=== PATIENT | female | born 2000 | race Two or more races ===

== ENCOUNTER 2024-08-06 07:10 | Emergency (ER) | payer MEDICAID, SELFPAY ==
[2024-08-06 07:21] VITALS: BP 121/78; PULSE 112; RESP 18; TEMP 37.7; O2SAT 98; BMI 32.5
--- NOTE | 2024-08-06 07:27 | XR_ITS ---
Examination: AP chest single view TECHNIQUE: AP portable upright chest single view Exam date and time: August 06, 2024 0745 hours Comparison April 18, 2022 INDICATIONS: Shortness of breath headache abdominal pain body chills today FINDINGS: Normal heart size Lungs are clear. The osseous structures are intact IMPRESSION: No active disease
--- NOTE | 2024-08-06 07:27 | XR_ITS ---
Examination: Complete OB ultrasound greater than 14 weeks Date and time of exam: August 06, 2024 0934 hours INDICATIONS: Positive test one day ago, pelvic pain onset today Findings: Viable intrauterine single fetus with single amniotic sac presentation cephalic Cardiac motion 164 BPM Placenta posterior 0.3 cm from the cervix grade 1 Umbilical cord insertion 3 vessel seen Cervix 3.1 cm Right ovary 2.9 x 2.1 cm arterial flow Left ovary 3.1 x 2.6 cm arterial flow. Composite estimated gestational age based on BPD, head circumference, abdominal circumference, femur length is 14 weeks 3 days Estimated weight 95 g. Survey of intracranial anatomy, spinal anatomy, abdominal anatomy, four-chamber heart performed with no abnormalities identified. Impression: Viable intrauterine gestation cephalic presentation Placenta low lying 0.3 cm from the cervix, recommend four-week follow-up ultrasound.
--- NOTE | 2024-08-06 07:43 | EDNOTE_ITS ---
Upper Respiratory Inf. RME/HPI General Chief Complaint: Flu Like Symptoms Stated Complaint: STEPHENS, ABD PAIN, COUGH, SOB, BODYACHES, CHILLS Time Seen by Provider: 08/06/24 07:14 Arrival date/time: 08/06/24 07:10 23-year-old female with no significant medical problems presents emergency department today with multiple complaints including headache, body aches, chills, cough and congestion and pelvic pain. Patient reports that she is not sure how far along she is. Limitations: no limitations Related Data Previous Rx's ?Medication ?Instructions ?Recorded acetaminophen 500 mg capsule 1,000 mg (2 x 500 mg) PO Q8HR PRN 08/06/24 pain #30 caps metoclopramide HCl 10 mg tablet 10 mg PO Q6H PRN nausea and 08/06/24 (Reglan) vomiting #30 tabs Allergies Allergy/AdvReac Type Severity Reaction Status Date / Time No Known Allergies Allergy Verified 03/30/23 04:55 Review of Systems Review of Systems Systems Reviewed: All systems reviewed, normal except as documented Constitutional Constitutional: Reports system reviewed and no additional complaints, except as documented, Denies fever(s) and Denies headache(s) Eyes Eyes: Reports system reviewed and no additional complaints, except as documented and Denies blurry vision ENT Ears, Nose, Mouth, and Throat: Reports system reviewed and no additional complaints, except as documented, Denies headache(s), Denies nasal congestion and Denies nasal discharge Cardiovascular Cardiovascular: Reports system reviewed and no additional complaints, except as documented, Denies chest pain and Denies dyspnea Respiratory Respiratory: Reports system reviewed and no additional complaints, except as documented, Reports chest congestion, Reports cough and Denies dyspnea Gastrointestinal Gastrointestinal: Reports system reviewed and no additional complaints, except as documented, Reports abdominal pain, Reports nausea and Reports vomiting Integumentary/Breasts Skin/Breast: Reports system reviewed and no additional complaints, except as documented and Denies rash Neurologic Neurologic: Reports system reviewed and no additional complaints, except as documented, Reports as per HPI and Denies headache(s) Past Medical History Past Medical History NEUROLOGIC: Negative Neurological Disorders CARDIAC: Negative Cardiac Disorders ED Exam General Limitations: Present no limitations General appearance: Present alert and in no apparent distress Head Head exam: Present atraumatic Eye Eye exam: Present normal appearance, PERRL and EOMI; Absent conjunctival injection ENT ENT exam: Present normal exam, normal oropharynx and mucous membranes moist Neck Neck exam: Present normal inspection, full ROM and trachea midline Chest Chest inspection: Present normal inspection and symmetric chest wall rise Respiratory Respiratory exam: Present normal lung sounds bilaterally; Absent respiratory distress, wheezes, stridor, accessory muscle use or prolonged expiratory phase Cardiovascular Cardiovascular exam: Present regular rate, normal rhythm and normal heart sounds Abdominal Exam Abdominal exam: Present soft and normal bowel sounds; Absent distention, tenderness, guarding, rebound, rigidity, [place]ayoa's sign, Rovsing's sign or t enderness at [place]'s Point Abdominal tenderness: Absent RUQ or RLQ Extremities Exam Extremities exam: Present normal inspection and full ROM Back Exam Back exam: Present normal inspection and full ROM Neurological Exam Neurological exam: Present alert, oriented X3, CN II-XII intact, normal gait and reflexes normal; Absent motor sensory deficit Psychiatric Psychiatric exam: Present normal affect and normal mood Skin Skin exam: Present warm, dry, intact and normal color; Absent rash Course Quality Measures none Orders Category Date Time Status Bedside COVID-19 Antigen Test NOW Care 08/06/24 07:27 Completed Bedside Influenza A&B Antigen Test NOW Care 08/06/24 07:27 Completed US OB >= 14 weeks Fetus Stat Exams 08/06/24 07:27 Completed XR chest 1V portable Stat Exams 08/06/24 07:27 Completed Beta HCG,Quantitative Stat Lab 08/06/24 07:42 Completed CBC Stat Lab 08/06/24 07:42 Completed Comprehensive Metabolic Panel Stat Lab 08/06/24 07:42 Completed Lipase Stat Lab 08/06/24 07:42 Completed Urinalysis Stat Lab 08/06/24 07:41 Completed Urine Culture Stat Lab 08/06/24 07:41 Received Acetaminophen Tab [Tylenol ES Tab] Med 08/06/24 07:27 Discontinued 1,000 mg PO X1 ONE Metoclopramide Inj [Reglan Inj] Med 08/06/24 07:40 Discontinued 10 mg IVP X1 ONE Sodium Chloride 0.9% 1000 ml [Ns] 1,000 ml Med 08/06/24 07:40 Discontinued IV 999 mls/hr Vital Signs Vital signs: Vital Signs Temperature 99.8 F 08/06/24 07:21 Pulse Rate 112 H 08/06/24 07:21 Respiratory Rate 18 08/06/24 07:21 Blood Pressure 121/78 08/06/24 07:21 Pulse Oximetry (%) 98 08/06/24 07:21 Oxygen Delivery Method Room Air 08/06/24 07:21 O2 saturation 98% room air within normal limits Upper Respiratory Infection MDM Narrative MDM Narrative:: 23-year-old female with no significant medical problems presents emergency department today with multiple complaints including headache, body aches, chills, cough and congestion and pelvic pain. Patient reports that she is not sure how far along she is. Lab work x-ray and ultrasound obtained Chest x-ray: No acute infiltrates noted Ultrasound: Viable patient started have repeat ultrasound and lab work in 2 weeks Lab work: Patient tested positive for flu consistent with patient's symptoms Patient has no leukocytosis Patient discharged home in no distress to follow-up with primary care doctor in the next 24 to 48 hours and for any worsening symptoms to return to the ER immediately Patient data External records reviewed:: [facility] previous records Clinical information provided by:: patient Social determinants that could affect healthcare access:: none Patient has the following chronic illnesses:: None How is presenting disease/condition affected by chronic disease/condition?: no chronic disease Evaluation data The following diagnostics were reviewed and interpreted by me:: lab results and radiology exam(s) Lab and/or radiology exams considered but not ordered:: Labs and radiology obtained Interpretation Summary: Reviewed by me Medications / Prescriptions Medications or Prescriptions considered but not ordered:: Given Medication administrations:: Medication Administration History Discontinued Medications Acetaminophen (Acetaminophen 500 Mg Tablet) 1,000 mg PO X1 ONE Stop: 08/06/24 07:28 Last Admin: 08/06/24 08:39 Dose: 1,000 mg Documented By: Sodium Chloride (Ns) 1,000 mls @ 999 mls/hr IV .Q1H1M ONE Stop: 08/06/24 08:40 Last Infusion: 08/06/24 09:52 Dose: Infused Documented By: Admin: 08/06/24 08:38 Dose: 999 mls/hr Documented By: Metoclopramide HCl (Metoclopramide Inj 5 Mg/Ml Vial 2 Ml) 10 mg IVP X1 ONE; Protocol Stop: 08/06/24 07:41 Last Admin: 08/06/24 08:39 Dose: 10 mg Documented By: Given Consultations Consultation(s) initiated? (list below): No Diagnosis Upper Respiratory Differential Diagnosis: upper respiratory infection, otitis media, sinusitis, viral infection, bronchitis and influenza Most likely diagnosis given after review of the tests above:: URI Admission Indicated Admission indicated?: not indicated Admission Request Was there a request for admission?: No Disposition Plan Disposition Plan: Discharge Discharge Attestation Discharge Attestation: The patient and all family members were given an opportunity to ask questions and understood the discharge instructions. Discharge instructions specifically effects, indications for sooner follow up or return to the emergency department, and the expected course of current diagnosis. Patient condition: Stable Discharge Plan Plan Patient Disposition: HOME (Self Care) Disposition Comment: Stable Prescriptions/Referrals Prescriptions/Med Rec: New acetaminophen 500 mg capsule 1,000 mg PO Q8HR PRN (Reason: pain) Qty: 30 0RF metoclopramide HCl [Reglan] 10 mg tablet 10 mg PO Q6H PRN (Reason: nausea and vomiting) Qty: 30 0RF Referrals: En Moore MD [Primary Care Provider] - 08/07/24 Problem List Clinical Impression: Influenza, Nausea & vomiting, Patient/Caregiver Discharge Instructions Education Materials: ED Influenza (Adult) Additional Instructions: Please have repeat ultrasound in 2 weeks with your [employer] for worsening symptoms return immediately Print Language: French Stand Alone Forms: Faye Award Info., Work/School Release, Patient Portal Info Letter PA/OVEREDGE MACHINE OPERATOR Supervising Physician PA/OVEREDGE MACHINE OPERATOR Supervising Physician: Dr. Mariee
[2024-08-06 07:54] LABS: Collection Type, Urine Clean Catch
[2024-08-06 07:59] LABS: Bilirubin,Urine Negative (Negative); Blood,Urine Negative (Negative); Clarity,Urine Clear (Clear/Hazy); Color,Urine Lt-Yellow (Lt Yel-Yel); Glucose, Urine Negative (Negative); Ketones,Urine Trace (Negative); Leukocyte Esterase,Urine Positive (Negative); Nitrite,Urine Negative (Negative); Protein,Urine Negative (Neg - Trace); RBC,Urine 2 /hpf (0-3); Specific Gravity,Urine 1.017 (1.001-1.035); Squamous Epithelial Cell,Urine 9 /hpf (0-5); Urobilinogen,Urine Negative mg/dL (0.0-1.0); WBC,Urine 3 /hpf (0-5)
[2024-08-06 07:59] LABS: Basophils % (Auto) 1 % (0-2.5); Eosinophils # (Auto) 0.1 Thou/mm3 (0.0-0.5); Eosinophils % (Auto) 1 % (0-10); Hematocrit 35.1 % (36.0-46.0); Immature Granulocytes % (Auto) 1 % (0-0); Immature Granulocytes Auto 0.04 Thou/mm3 (0.00-0.00); Lymphocytes # (Auto) 0.3 Thou/mm3 (1.0-4.8); Lymphocytes % (Auto) 4 % (10-50); Mean Corpuscular Hemoglobin 29.1 pg (25.0-35.0); Mean Corpuscular Volume 79 fL (80-100); Monocytes # (Auto) 0.5 Thou/mm3 (0.0-0.8); Monocytes % (Auto) 5 % (0-12); Neutrophils # (Auto) 7.6 Thou/mm3 (1.8-7.7); Neutrophils % (Auto) 89 % (37-80); Nucleated Red Blood Cell % 0 /100 WBC (0); Platelet Count 230 Thou/mm3 (140-440); RDW Standard Deviation 35.2 fL (36.4-46.3); Red Blood Count 4.46 Miln/mm3 (4.00-5.20); White Blood Count 8.5 Thou/mm3 (3.6-11.0)
[2024-08-06 08:08] VITALS: BP 113/74; PULSE 114; RESP 19; TEMP 38.1; O2SAT 99
[2024-08-06 08:38] LABS: Alanine Aminotransferase 13 U/L (10-49); Albumin, Serum 4.3 gm/dL (3.5-5.0); Albumin/Globulin Ratio 1.5 (1.2-2.2); Alkaline Phosphatase 58 U/L (46-116); Anion Gap 7 (7-16); Aspartate Amino Transferase 20 U/L (0-34); BUN/Creatinine Ratio 12 Ratio (12-20); Bilirubin,Total 0.5 mg/dL (0.3-1.2); Blood Urea Nitrogen 6 mg/dL (9-23); Calcium 9.6 mg/dL (8.3-10.6); Calcium (Corrected) 9.6 mg/dL (8.5-10.1); Chloride 103 mMol/L (98-107); Creatinine (Component) 0.5 mg/dL (0.6-1.3); Globulin 2.8 gm/dL (2.3-3.5); Glucose 103 mg/dL (74-106); Lipase 34 U/L (12-53); Osmolality,Calculated 262 (275-295); Potassium 3.7 mMol/L (3.4-5.1); Sodium 132 mMol/L (136-145); Total Protein 7.1 gm/dL (5.7-8.2); eGFR > 60 See Note
[2024-08-06] MEDS: SODIUM CHLORIDE 0.9% 1000 ML 1,000 ML 999 ML IV (08:38)
[2024-08-06 08:39] VITALS: TEMP 38.1
[2024-08-06] MEDS: METOCLOPRAMIDE INJ 5 MG/ML VIAL 2 ML 10 MG IVP (08:39)
[2024-08-06] MEDS: ACETAMINOPHEN 500 MG TABLET 1000 MG PO (08:39)
[2024-08-06 09:03] LABS: Beta HCG,Quantitative 61688 mIU/mL (<5.0)
[2024-08-06 10:30] VITALS: BP 129/81; PULSE 89; RESP 18; TEMP 37.2
== END 2024-08-06 11:10 | disposition home or self-care (01) ==
PROVIDERS: Nurse Practitioner Primary Care; Emergency Provider Emergency Medicine; PCP Family Medicine
DX: O99.519 Diseases of the respiratory system complicating pregnancy, unspecified trimester (principal); J11.1 Influenza due to unidentified influenza virus with other respiratory manifestations
CPT/HCPCS: 36415; 71045; 76805; 80053; 81001; 83690; 84702; 85025; 87086; 87400; 87811; 96374; 99284; J2765; J7030; A9270

== ENCOUNTER 2024-11-13 20:03 | Observation (INO) | payer MEDICAID, SELFPAY ==
[2024-11-13 19:04] VITALS: BP 122/79; PULSE 112; RESP 18; TEMP 36.9; O2SAT 98; BMI 34.0
[2024-11-13 20:13] VITALS: BMI 33.8
[2024-11-13 20:14] VITALS: TEMP 36.6
[2024-11-13 20:19] VITALS: BP 122/62; PULSE 75; RESP 100; RESP 18; TEMP 36.6
== END 2024-11-13 20:44 | disposition home or self-care (01) ==
PROVIDERS: Admitting Provider Obstetrics & Gynecology; Visit Provider Obstetrics & Gynecology
DX: O26.893 Other specified pregnancy related conditions, third trimester (principal); Z3A.28 28 weeks gestation of pregnancy; R10.2 Pelvic and perineal pain
CPT/HCPCS: 59899

== ENCOUNTER 2024-12-23 14:12 | Outpatient (AMB) | payer MEDICAID, SELFPAY ==
[2024-12-23 14:37] VITALS: BP 102/87; PULSE 80; RESP 16; TEMP 36.3; O2SAT 98; BMI 36.1
--- NOTE | 2024-12-23 14:37 | AMB.OBVISIT ---
Vital Signs 12/23/24 14:37 Height 1.55 m Height Method Stated Weight 86.806 kg Weight Measurement Method Standing Scale BMI 36.1 BP 102/87 H Blood Pressure Source Automatic Cuff Blood Pressure Location Left Upper Arm Position Sitting Respiration 16 Pulse 80 Pulse Source Monitor Temp 97.3 F Temp Source Oral Pulse Oximetry (%) 98 Oxygen Delivery Method Room Air Allergies/Home Meds Allergies & Medications Allergies No Known Allergies Allergy (Verified 12/23/24 14:38) Medication Reconciliation vits no.130-ferrous fum 27 mg iron-folic acid 800 mcg tablet ( Vitamin) tab 11/13/24 [History Confirmed 12/23/24] Intake Visit Data Collection New Patient or Established: Established Patient (seen at [facility] within 3 years) Reason for Visit:: Seen by Clinical Staff ONLY (RN/MA): No Gaming Floor Supervisor Required: No Do You Feel Safe at Home: Yes Authorities Contacted: N/A PCP or OBGYN visit in last 3 months: Yes Hx Now: Yes Are you currently on any form of Control: No Pain Present Currently: No Pain Scale Used: Murray-Villar/Numerical Pain scale:: 0 Smoking Status Smoking Status: Never smoker Questionnaires Covid-19 Vaccine Questionnaire Has patient been vacinated for Covid-19 Have you been vacinated for Covid-19: Yes PHQ-9 PHQ-2 Over the last 2 weeks, how often have you been bothered by any of the following problems? 1. Little interest or pleasure in doing things: not at all 2. Feeling down, depressed, or hopeless: not at all Total score: 0 PHQ-9 3. Trouble falling or staying asleep, or sleeping too much: Not at all 4. Feeling tired or having little energy: Not at all 5. Poor appetite or overeating: Not at all 6. Feeling bad about yourself - or that you are a failure or have let yourself or your family down: Not at all 7. Trouble concentrating on things, such as reading the newspaper or watching television: Not at all 8. Moving or speaking so slowly that other people could have noticed? - Or the opposite - being so fidgety or restless that you have been moving around a lot more than usual: not at all 9. Thoughts that you would be better off or of hurting yourself in some way: Not at all Total score: 0 If you checked off any problems, how difficult have these problems made it for you to do your work, take care of things at home, or get along with other people?: not difficult at all Source: Developed by Drs. Red Mayes, Janine Dong, Jose Lerma and colleagues, with an educational atiya from [employer]. Depression screen completed yes Social History Living Situation History Lives With: Family Housing: House Tobacco History Smoking Status: Never smoker Second Hand Smoke Exposure: No Alcohol History Alcohol Intake: Never Domestic Abuse History Do You Feel Safe at Home: Yes Past Medical History Past Medical History Have you ever been diagnosed with any of the following: Cardiology Problems Congestive Heart Failure: No Respiratory Problems Chronic Obstructive Pulmonary Disease (COPD): No Asthma: No Stomache/Intestinal Problems Hepatitis: No Colorectal Cancer: No Genital/Urinary Problems Renal Disease: No Reproductive Problems Breast Cancer: No Previous Pregnancies: Yes Musculoskeletal Problems Bone Cancer: No Arthritis: Yes Endocrine Problems Diabetes Mellitus Type 1: No Diabetes Mellitus Type 2: No Blood Problems Anemia: Yes Psychologic Problems Recreational Drug Use: Yes (THC/COCAINE) Depression: No Anxiety: No Other Problems Hospitalization: No Down Syndrome: No Developmental Delay: No Shingles: No Falls: No Blood Transfusions: No Blood Transfusion Reaction: No Anesthesia Reactions: No Organ Transplant: No Chemotherapy: No Radiation Therapy: No Hyperbaric Therapy: No MRSA: No VRSA: No Vancomycin-Resistant Enterococci: No Human Immunodeficiency Virus (HIV): No Chicken Pox: No Measles: No Mumps: No Rubella (Al[place]ian Measles): No Pertussis: No Clostridium Difficile: No Cancer: No Cervical Cancer: No Lung Cancer: No Ovarian Cancer: No History of Present Illness HPI Narrative 24-year-old 3 para 2 for OB check and transfer of care from [facility] to [facility]. Patient has been followed at [facility] since she was 12 weeks . She has no records today but a medical release of records was done. But she has notable last.. But by 12-week ultrasound she is due February 03, 2025. Patient denies social habits. Denies surgery. Denies chronic illness. She is taking her vitamins and iron. This has been uneventful. She has an OB ultrasound with maternal- medicine coming up January 09. She complains of pelvic pressure. Patient has also had increased swelling of her feet and cannot wear shoes suitable for work so her employer asked her not to come in. Patient denies labor complaints reports good movement Review of Systems Review of Systems Systems Reviewed: All systems reviewed, normal except as documented Visit CHILO Calculator Estimated Delivery Date Method Current WG Current Estimate 02/05/25 LMP (Uncertain) 33w 5d Expected Delivery Route/Plan vaginal Specific Issue/Plans increased sweling both legs, increased weight gain Initial Weight: Not Recorded Date <del>?</del> EGA Weight Edema CTX Effacement BP Fundal ht Pres Dilation Effacement Station Visit Note Alb Glu FHR Mov 12/23/24 <del>?</del> 33w 5d 86.806 kg 1+ absent 102/87 34 cephalic This is a 24-year-old 3 para 2 at 34 weeks by a 12-week ultrasound. Patient reports good movement. Reports pressure. Reports swelling is improved since her last day of work. Patient received Tdap at her last OB visit. And patient has a follow-up maternal- medicine appointment January 09. Medical release of records today. Patient was given a disability note for today and she will return in 6 weeks sore around March 21. Advised to avoid salt. I discussed weight gain and limiting her carbohydrates. More fiber more protein. Discussed labor precautions. Discussed kick count twice daily. Return in 2 weeks for group B strep 133 active Exam General Limitations: no limitations General Appearance: alert, in no apparent distress, comfortable, cooperative, healthy appearing, well developed and well groomed Chest Chest inspection: Present normal inspection and symmetric chest wall rise Resp Respiratory exam: Present normal lung sounds bilaterally Card Cardiovascular exam: Present regular rate, normal rhythm and normal heart sounds Abdominal Abdominal exam: Present soft (gravid abdomen, FH:33, fht:133) and normal bowel sounds Psych Psychiatric exam: Present normal affect and normal mood Assessment & Plan Diagnosis / Problem List (1) Normal in multigravida in third trimester: Status: Acute Plan Release of records filled out. Patient to start disability. Note for work given. Continue vitamins and iron twice a day reviewed high iron foods. Avoid salt. Comfort measures for retained fluids. Elevate the legs. Increase activity to 40 minutes a day. And I discussed diet and weight with patient. GBS next visit Return in 2 weeks for OB check Additional Plan Follow Up: 2 Weeks (rtc ob check) Office Procedures OB Clinic LOC & Office Proc's Nursing/Assessment Patient Status: Established Patient OB Clinic Nursing Assessment: BP Monitoring, Medication Reconciliation, Update PMH in EMR and Vital Signs OB Clinic Coordination of Care: Consent,records obtained, informed consent, Education Simp Pt/Fam, Lab and Imaging orders and Staff clarify orders Special Needs: Heart tones Established Patient Charge Established Patient Point Assignment: 120 Established Patient Point Charge: EP Level 4 (120-155)
== END 2024-12-23 15:03 | disposition home or self-care (01) ==
LOC: HODSOBC 14:12
PROVIDERS: Supervising Provider Obstetrics & Gynecology; Visit Provider Advanced Practice Midwife
DX: Z34.83 Encounter for supervision of other normal pregnancy, third trimester (principal); Z3A.33 33 weeks gestation of pregnancy
CPT/HCPCS: 99214; G0463

== ENCOUNTER 2025-01-07 13:32 | Outpatient (AMB) | payer MEDICAID, SELFPAY ==
[2025-01-07 13:59] VITALS: BP 136/76; PULSE 106; RESP 18; TEMP 36.8; O2SAT 99; BMI 25.3
--- NOTE | 2025-01-07 13:59 | OBCLNT_ITS ---
Vital Signs 01/07/25 13:59 Height 1.55 m Height Method Stated Weight 60.951 kg Weight Measurement Method Standing Scale BMI 25.3 BP 136/76 H Blood Pressure Source Automatic Cuff Blood Pressure Location Left Upper Arm Position Sitting Respiration 18 Pulse 106 H Pulse Source Monitor Temp 98.2 F Temp Source Oral Pulse Oximetry (%) 99 Oxygen Delivery Method Room Air Allergies/Home Meds Allergies & Medications Allergies No Known Allergies Allergy (Verified 01/07/25 14:00) Medication Reconciliation vits no.130-ferrous fum 27 mg iron-folic acid 800 mcg tablet ( Vitamin) tab 11/13/24 [History Confirmed 01/07/25] Intake Visit Data Collection New Patient or Established: Established Patient (seen at [facility] within 3 years) Reason for Visit:: OBC Seen by Clinical Staff ONLY (RN/MA): No Usability Architect Required: No Do You Feel Safe at Home: Yes Authorities Contacted: N/A PCP or OBGYN visit in last 3 months: Yes Date of Last PCP or OBGYN visit: 12/23/24 Hx Now: Yes Are you currently on any form of Control: No Pain Present Currently: No Pain Scale Used: Murray-Villar/Numerical Pain scale:: 0 Smoking Status Smoking Status: Never smoker Questionnaires Covid-19 Vaccine Questionnaire Has patient been vacinated for Covid-19 Have you been vacinated for Covid-19: Yes PHQ-9 PHQ-2 Over the last 2 weeks, how often have you been bothered by any of the following problems? 1. Little interest or pleasure in doing things: not at all 2. Feeling down, depressed, or hopeless: not at all Total score: 0 PHQ-9 3. Trouble falling or staying asleep, or sleeping too much: Not at all 4. Feeling tired or having little energy: Not at all 5. Poor appetite or overeating: Not at all 6. Feeling bad about yourself - or that you are a failure or have let yourself or your family down: Not at all 7. Trouble concentrating on things, such as reading the newspaper or watching television: Not at all 8. Moving or speaking so slowly that other people could have noticed? - Or the opposite - being so fidgety or restless that you have been moving around a lot more than usual: not at all 9. Thoughts that you would be better off or of hurting yourself in some way: Not at all Total score: 0 If you checked off any problems, how difficult have these problems made it for you to do your work, take care of things at home, or get along with other people?: not difficult at all Source: Developed by Drs. Red Mayes, Janine Dong, Jose Lerma and colleagues, with an educational atiya from [employer]. Depression screen completed yes Social History Living Situation History Marital Status: Lives With: Family Housing: House Tobacco History Smoking Status: Never smoker Second Hand Smoke Exposure: No Alcohol History Alcohol Intake: Never Domestic Abuse History Do You Feel Safe at Home: Yes Past Medical History Past Medical History Have you ever been diagnosed with any of the following: Cardiology Problems Congestive Heart Failure: No Respiratory Problems Chronic Obstructive Pulmonary Disease (COPD): No Asthma: No Stomache/Intestinal Problems Hepatitis: No Colorectal Cancer: No Genital/Urinary Problems Renal Disease: No Reproductive Problems Breast Cancer: No Previous Pregnancies: Yes Musculoskeletal Problems Bone Cancer: No Arthritis: Yes Endocrine Problems Diabetes Mellitus Type 1: No Diabetes Mellitus Type 2: No Blood Problems Anemia: Yes Psychologic Problems Recreational Drug Use: Yes (THC/COCAINE) Depression: No Anxiety: No Other Problems Hospitalization: No Down Syndrome: No Developmental Delay: No Shingles: No Falls: No Blood Transfusions: No Blood Transfusion Reaction: No Anesthesia Reactions: No Organ Transplant: No Chemotherapy: No Radiation Therapy: No Hyperbaric Therapy: No MRSA: No VRSA: No Vancomycin-Resistant Enterococci: No Human Immunodeficiency Virus (HIV): No Chicken Pox: No Measles: No Mumps: No Rubella (Micronesian Measles): No Pertussis: No Clostridium Difficile: No Cancer: No Cervical Cancer: No Lung Cancer: No Ovarian Cancer: No Visit OB Visit Log OB Flowsheet Initial Weight: Not Recorded Date -?-?-?-?-?-?-?-?-?-?-?-?- EGA Weight Edema CTX Effacement BP Fundal ht Pres Dilation Effacement Station Visit Note Alb Glu FHR Mov 12/23/24 -?-?-?-?-?-?-?-?-?-?-?-?- 33w 5d 86.806 kg 1+ absent 102/87 34 cephalic This is a 24-year-old 3 para 2 at 34 weeks by a 12-week ultrasound. Patient reports good movement. Reports pressure. Reports swelling is improved since her last day of work. Patient received Tdap at her last OB visit. And patient has a follow-up maternal- medicine appointment January 09. Medical release of records today. Patient was given a disability note for today and she will return in 6 weeks sore around March 21. Advised to avoid salt. I discussed weight gain and limiting her carbohydrates. More fiber more protein. Discussed labor precautions. Discussed kick count twice daily. Return in 2 weeks for group B strep 133 active 01/07/25 -?-?-?-?-?-?-?-?-?-?-?-?- 35w 6d 60.951 kg absent absent 136/76 cephalic GBS today. Discussed kick count labor precautions with patient. Complains of pressure. Denies leaking or bleeding. Fetus is active and palpated while listening to heart rate. Patient reports that she has records but did not bring them. Return in 1 week OB check 135 active CHILO Calculator Estimated Delivery Date Method Current WG Current Estimate 02/05/25 LMP (Uncertain) 35w 6d Expected Delivery Route/Plan vaginal Specific Issue/Plans increased sweling both legs, increased weight gain Assessment & Plan Diagnosis / Problem List (1) Normal in multigravida in third trimester: Status: Acute Plan GBS today. Discussed labor precautions. Discussed kick count with patient, perform kick count twice daily. Continue vitamins. Increase fluids. Walk 40 minutes a day. Advised patient to peanut picker records from [facility]. Additional Plan Follow Up: 1 Week (obc) Office Procedures OB Clinic LOC & Office Proc's Nursing/Assessment Patient Status: Established Patient OB Clinic Nursing Assessment: BP Monitoring, Medication Reconciliation, Update PMH in EMR and Vital Signs OB Clinic Coordination of Care: Consent,records obtained, informed consent, Lab and Imaging orders and Staff clarify orders Special Needs: Heart tones Established Patient Charge Established Patient Point Assignment: 105 Established Patient Point Charge: EP Level 3 (80-115)
== END 2025-01-07 14:16 | disposition home or self-care (01) ==
LOC: HODSOBC 13:32
PROVIDERS: Supervising Provider Advanced Practice Midwife; Visit Provider Advanced Practice Midwife
DX: Z34.83 Encounter for supervision of other normal pregnancy, third trimester (principal); Z3A.35 35 weeks gestation of pregnancy
CPT/HCPCS: 99213; G0463

== ENCOUNTER 2025-01-10 23:52 | Observation (INO) | payer MEDICAID, SELFPAY ==
[2025-01-10 23:58] VITALS: BP 125/67; PULSE 89; RESP 100; RESP 16; TEMP 36.8
[2025-01-11] VITALS (9 sets, daily range): BP systolic 131; BP diastolic 77; PULSE 82–97; TEMP 36.8; O2SAT 99–100; BMI 36.9
== END 2025-01-11 00:46 | disposition home or self-care (01) ==
PROVIDERS: Admitting Provider Obstetrics & Gynecology; Visit Provider Obstetrics & Gynecology
DX: O36.8130 Decreased fetal movements, third trimester, not applicable or unspecified (principal); O26.893 Other specified pregnancy related conditions, third trimester; R10.2 Pelvic and perineal pain; Z3A.36 36 weeks gestation of pregnancy
CPT/HCPCS: 59025; 59899; G0378

== ENCOUNTER 2025-01-14 14:37 | Outpatient (AMB) | payer MEDICAID, SELFPAY ==
--- NOTE | 2025-01-14 14:50 | OBCLNT_ITS ---
Vital Signs 01/14/25 14:52 Height 1.55 m Height Method Stated Weight 87.543 kg Weight Measurement Method Standing Scale BMI 36.4 BP 126/81 Blood Pressure Source Automatic Cuff Blood Pressure Location Left Upper Arm Position Sitting Respiration 18 Pulse 112 H Pulse Source Monitor Temp 97.2 F Temp Source Oral Pulse Oximetry (%) 98 Oxygen Delivery Method Room Air Allergies/Home Meds Allergies & Medications Allergies No Known Allergies Allergy (Verified 01/14/25 14:53) Medication Reconciliation vits no.130-ferrous fum 27 mg iron-folic acid 800 mcg tablet ( Vitamin) tab 11/13/24 [History Confirmed 01/14/25] Intake Visit Data Collection New Patient or Established: Established Patient (seen at [facility] within 3 years) Reason for Visit:: OBC Consent obtained for Telemed Visit: No Seen by Clinical Staff ONLY (RN/MA): No Tap Builder Required: No Do You Feel Safe at Home: Yes Authorities Contacted: N/A PCP or OBGYN visit in last 3 months: Yes Date of Last PCP or OBGYN visit: 01/11/25 Hx Now: Yes Are you currently on any form of Control: No Pain Present Currently: No Pain Scale Used: Murray-Villar/Numerical Pain scale:: 0 Smoking Status Smoking Status: Never smoker Questionnaires Covid-19 Vaccine Questionnaire Has patient been vacinated for Covid-19 Have you been vacinated for Covid-19: Yes PHQ-9 PHQ-2 Over the last 2 weeks, how often have you been bothered by any of the following problems? 1. Little interest or pleasure in doing things: not at all 2. Feeling down, depressed, or hopeless: not at all Total score: 0 PHQ-9 3. Trouble falling or staying asleep, or sleeping too much: Not at all 4. Feeling tired or having little energy: Not at all 5. Poor appetite or overeating: Not at all 6. Feeling bad about yourself - or that you are a failure or have let yourself or your family down: Not at all 7. Trouble concentrating on things, such as reading the newspaper or watching television: Not at all 8. Moving or speaking so slowly that other people could have noticed? - Or the opposite - being so fidgety or restless that you have been moving around a lot more than usual: not at all 9. Thoughts that you would be better off or of hurting yourself in some way: Not at all Total score: 0 If you checked off any problems, how difficult have these problems made it for you to do your work, take care of things at home, or get along with other people?: not difficult at all Source: Developed by Drs. Red Mayes, Janine oDng, Jose Lerma and colleagues, with an educational atiya from [employer]. Depression screen completed yes Social History Living Situation History Lives With: Family Housing: House Tobacco History Smoking Status: Never smoker Second Hand Smoke Exposure: No Alcohol History Alcohol Intake: Never Domestic Abuse History Do You Feel Safe at Home: Yes Past Medical History Past Medical History Have you ever been diagnosed with any of the following: Cardiology Problems Congestive Heart Failure: No Respiratory Problems Chronic Obstructive Pulmonary Disease (COPD): No Asthma: No Stomache/Intestinal Problems Hepatitis: No Colorectal Cancer: No Genital/Urinary Problems Renal Disease: No Reproductive Problems Breast Cancer: No Previous Pregnancies: Yes Musculoskeletal Problems Bone Cancer: No Arthritis: Yes Endocrine Problems Diabetes Mellitus Type 1: No Diabetes Mellitus Type 2: No Blood Problems Anemia: Yes Psychologic Problems Recreational Drug Use: Yes (THC/COCAINE) Depression: No Anxiety: No Other Problems Hospitalization: No Down Syndrome: No Developmental Delay: No Shingles: No Falls: No Blood Transfusions: No Blood Transfusion Reaction: No Anesthesia Reactions: No Organ Transplant: No Chemotherapy: No Radiation Therapy: No Hyperbaric Therapy: No MRSA: No VRSA: No Vancomycin-Resistant Enterococci: No Human Immunodeficiency Virus (HIV): No Chicken Pox: No Measles: No Mumps: No Rubella (Vietnamese Measles): No Pertussis: No Clostridium Difficile: No Cancer: No Cervical Cancer: No Lung Cancer: No Ovarian Cancer: No Visit OB Visit Log OB Flowsheet Initial Weight: Not Recorded Date -?-?-?-?-?-?-?-?-?-?-?-?- EGA Weight Edema CTX Effacement BP Fundal ht Pres Dilation Effacement Station Visit Note Alb Glu FHR Mov 12/23/24 -?-?-?-?-?-?-?-?-?-?-?-?- 33w 5d 86.806 kg 1+ absent 102/87 34 cephalic This is a 24-year-old 3 para 2 at 34 weeks by a 12-week ultrasound. Patient reports good movement. Reports pressure. Reports swelling is improved since her last day of work. Patient received Tdap at her last OB visit. And patient has a follow-up maternal- medicine appointment January 09. Medical release of records today. Patient was given a disability note for today and she will return in 6 weeks sore around March 21. Advised to avoid salt. I discussed weight gain and limiting her carbohydrates. More fiber more protein. Discussed labor precautions. Discussed kick count twice daily. Return in 2 weeks for group B strep 133 active 01/07/25 -?-?-?-?-?-?-?-?-?-?-?-?- 35w 6d 60.951 kg absent absent 136/76 cephalic GBS today. Discussed kick count labor precautions with patient. Complains of pressure. Denies leaking or bleeding. Fetus is active and palpated while listening to heart rate. Patient reports that she has records but did not bring them. Return in 1 week OB check 135 active 01/14/25 -?-?-?-?-?-?-?-?-?-?-?-?- 36w 6d 87.543 kg absent absent 126/81 37 cephalic GBS-, discuss weight and diet, labor precaution, fkc bid, fetus growing 90%, schedule at 39 week, biggest baby 8lb, + 30lb weight, discuss labor precsution. called for sono from [facility] 135 active CHILO Calculator Estimated Delivery Date Method Current Current Estimate 02/05/25 LMP (Uncertain) 36w 6d Expected Delivery Route/Plan vaginal Specific Issue/Plans increased sweling both legs, increased weight gain Assessment & Plan Diagnosis / Problem List (1) Normal in multigravida in third trimester: Status: Acute Plan Discussed labor precautions. kick counts twice daily. Discussed signs symptoms of labor. ER precautions given. Continue vitamin the fluid. Called for sono results from [facility]. Return in a week OB check Additional Plan Follow Up: 1 Week (OBC) Office Procedures OB Clinic LOC & Office Proc's Nursing/Assessment Patient Status: Established Patient OB Clinic Nursing Assessment: BP Monitoring, Medication Reconciliation, Update PMH in EMR and Vital Signs OB Clinic Coordination of Care: Consent,records obtained, informed consent, Res ults/Orders obtained and Staff clarify orders Special Needs: Heart tones Established Patient Charge Established Patient Point Assignment: 95 Established Patient Point Charge: EP Level 3 (80-115)
[2025-01-14 14:52] VITALS: BP 126/81; PULSE 112; RESP 18; TEMP 36.2; O2SAT 98; BMI 36.4
== END 2025-01-14 15:29 | disposition home or self-care (01) ==
LOC: HODSOBC 14:37
PROVIDERS: PCP Advanced Practice Midwife; Referring Provider Advanced Practice Midwife; Supervising Provider Advanced Practice Midwife; Visit Provider Advanced Practice Midwife
DX: Z34.83 Encounter for supervision of other normal pregnancy, third trimester (principal); Z3A.36 36 weeks gestation of pregnancy
CPT/HCPCS: 99213; G0463

== ENCOUNTER 2025-01-21 13:02 | Outpatient (AMB) | payer MEDICAID, SELFPAY ==
--- NOTE | 2025-01-21 13:08 | OBCLNT_ITS ---
Vital Signs 01/21/25 13:14 Height 1.55 m Height Method Stated Weight 86.636 kg Weight Measurement Method Standing Scale BMI 36.0 BP 130/79 Blood Pressure Source Automatic Cuff Blood Pressure Location Right Upper Arm Position Sitting Respiration 18 Pulse 90 Pulse Source Monitor Temp 97.0 F Temp Source Oral Pulse Oximetry (%) 98 Oxygen Delivery Method Room Air Allergies/Home Meds Allergies & Medications Allergies No Known Allergies Allergy (Verified 01/21/25 13:15) Medication Reconciliation vits no.130-ferrous fum 27 mg iron-folic acid 800 mcg tablet ( Vitamin) tab 11/13/24 [History Confirmed 01/21/25] Intake Visit Data Collection New Patient or Established: Established Patient (seen at [facility] within 3 years) Reason for Visit:: CARE Seen by Clinical Staff ONLY (RN/MA): No Draw Press Operator Required: No Do You Feel Safe at Home: Yes Authorities Contacted: N/A PCP or OBGYN visit in last 3 months: Yes Hx Now: Yes Are you currently on any form of Control: No Pain Present Currently: No Pain Scale Used: Murray-Villar/Numerical Pain scale:: 0 Smoking Status Smoking Status: Never smoker Questionnaires Covid-19 Vaccine Questionnaire Has patient been vacinated for Covid-19 Have you been vacinated for Covid-19: No PHQ-9 PHQ-2 Over the last 2 weeks, how often have you been bothered by any of the following problems? 1. Little interest or pleasure in doing things: not at all 2. Feeling down, depressed, or hopeless: not at all Total score: 0 PHQ-9 3. Trouble falling or staying asleep, or sleeping too much: Not at all 4. Feeling tired or having little energy: Not at all 5. Poor appetite or overeating: Not at all 6. Feeling bad about yourself - or that you are a failure or have let yourself or your family down: Not at all 7. Trouble concentrating on things, such as reading the newspaper or watching television: Not at all 8. Moving or speaking so slowly that other people could have noticed? - Or the opposite - being so fidgety or restless that you have been moving around a lot more than usual: not at all 9. Thoughts that you would be better off or of hurting yourself in some way: Not at all Total score: 0 Source: Developed by Drs. Red Mayes, Janine Dong, Jose Lerma and colleagues, with an educational atiya from [employer]. Depression screen completed yes Social History Living Situation History Lives With: Family Housing: House Tobacco History Smoking Status: Never smoker Second Hand Smoke Exposure: No Alcohol History Alcohol Intake: Never Domestic Abuse History Do You Feel Safe at Home: Yes Past Medical History Past Medical History Have you ever been diagnosed with any of the following: Cardiology Problems Congestive Heart Failure: No Respiratory Problems Chronic Obstructive Pulmonary Disease (COPD): No Asthma: No Stomache/Intestinal Problems Hepatitis: No Colorectal Cancer: No Genital/Urinary Problems Renal Disease: No Reproductive Problems Breast Cancer: No Previous Pregnancies: Yes Musculoskeletal Problems Bone Cancer: No Arthritis: Yes Endocrine Problems Diabetes Mellitus Type 1: No Diabetes Mellitus Type 2: No Blood Problems Anemia: Yes Psychologic Problems Recreational Drug Use: Yes (THC/COCAINE) Depression: No Anxiety: No Other Problems Hospitalization: No Down Syndrome: No Developmental Delay: No Shingles: No Falls: No Blood Transfusions: No Blood Transfusion Reaction: No Anesthesia Reactions: No Organ Transplant: No Chemotherapy: No Radiation Therapy: No Hyperbaric Therapy: No MRSA: No VRSA: No Vancomycin-Resistant Enterococci: No Human Immunodeficiency Virus (HIV): No Chicken Pox: No Measles: No Mumps: No Rubella (Latvian Measles): No Pertussis: No Clostridium Difficile: No Cancer: No Cervical Cancer: No Lung Cancer: No Ovarian Cancer: No Care OB Visit Log OB Flowsheet Initial Weight: Not Recorded Date -?-?-?-?-?-?-?-?-?-?-?-?- EGA Weight Edema CTX Effacement BP Fundal ht Pres Dilation Effacement Station Visit Note Alb Glu FHR Mov 12/23/24 -?-?-?-?-?-?-?-?-?-?-?-?- 33w 5d 86.806 kg 1+ absent 102/87 34 cephalic This is a 24-year-old 3 para 2 at 34 weeks by a 12-week ultrasound. Patient reports good movement. Reports pressure. Reports swelling is improved since her last day of work. Patient received Tdap at her last OB visit. And patient has a follow-up maternal- medicine appointment January 09. Medical release of records today. Patient was given a disability note for today and she will return in 6 weeks sore around March 21. Advised to avoid salt. I discussed weight gain and limiting her carbohydrates. More fiber more protein. Discussed labor precautions. Discussed kick count twice daily. Return in 2 weeks for group B strep 133 active 01/07/25 -?-?-?-?-?-?-?-?-?-?-?-?- 35w 6d 60.951 kg absent absent 136/76 cephalic GBS today. Discussed kick count labor precautions with patient. Complains of pressure. Denies leaking or bleeding. Fetus is active and palpated while listening to heart rate. Patient reports that she has records but did not bring them. Return in 1 week OB check 135 active 01/14/25 -?-?-?-?-?-?-?-?-?-?-?-?- 36w 6d 87.543 kg absent absent 126/81 37 cephalic GBS-, discuss weight and diet, labor precaution, fkc bid, fetus growing 90%, schedule at 39 week, biggest baby 8lb, + 30lb weight, discuss labor precsution. called for sono from [facility] 135 active 01/21/25 -?-?-?-?-?-?-?-?-?-?-?-?- 37w 6d 86.636 kg absent occasional 50 130/79 39 ce phalic 1 50 -4 urine dip, leuk:+1/Nitr- urine dip, leuk:+1/Nitr-, re viewed GBS status, GBS+ urine dip, leuk:+1/Nitr-, re viewed GBS status, GBS+, schedule IOL 01/26/25. gave instruction, fetus active. labor precaution reviewed, fkc bid. rtc 1 week 140 active CHILO Calculator Estimated Delivery Date Method Current WG Current Estimate 02/05/25 LMP (Uncertain) 37w 6d Other Estimates 02/03/25 Ultrasound #1 38w 1d Comments: GBS+, . 08/06/24: 14w3/EDC 01/29/25. MFM sono: 01/09/25: 36w3. EFW 99%, EDC 02/03/25 Expected Delivery Route/Plan vaginal Specific Issue/Plans increased sweling both legs, increased weight gain Assessment & Plan Diagnosis / Problem List (1) Normal in multigravida in third trimester: Status: Acute Plan schedule IOL 01/26/25, labor precaution, fkc bid, walk 40 minute, continue pnv, discuss diet. reviewed iol with patient. rtc 1 week Additional Plan Follow Up: 1 Week (OBC) Office Procedures OB Clinic LOC & Office Proc's Nursing/Assessment Patient Status: Established Patient OB Clinic Nursing Assessment: Medication Reconciliation, Update PMH in EMR and Vital Signs OB Clinic Coordination of Care: Complex Care and Chronic Disease 1-5, Consent,records obtained, informed consent, Education Simp Pt/Fam, Lab and Imaging orders, Results/Orders obtained and Staff clarify orders Special Needs: Heart tones Miscellaneous Interventions: Blood/Urine Collection Established Patient Charge Established Patient Point Assignment: 165 Established Patient Point Charge: EP Level 5 (160-above)
[2025-01-21 13:14] VITALS: BP 130/79; PULSE 90; RESP 18; TEMP 36.1; O2SAT 98; BMI 36.0
== END 2025-01-21 13:25 | disposition home or self-care (01) ==
LOC: HODSOBC 13:02
PROVIDERS: PCP Advanced Practice Midwife; Referring Provider Advanced Practice Midwife; Supervising Provider Advanced Practice Midwife; Visit Provider Advanced Practice Midwife
DX: O09.893 Supervision of other high risk pregnancies, third trimester (principal); Z3A.37 37 weeks gestation of pregnancy; O99.820 Streptococcus B carrier state complicating pregnancy
CPT/HCPCS: 81001; 99215; G0463

== ENCOUNTER 2025-01-29 13:21 | Inpatient (IN) | payer MEDICAID, SELFPAY ==
[2025-01-29] VITALS (62 sets, daily range): BP systolic 110–183; BP diastolic 55–126; PULSE 68–112; RESP 18; TEMP 36.7–36.8; O2SAT 91–100; BMI 36.1
[2025-01-29 13:53] LABS: Basophils # (Auto) 0.1 Thou/mm3 (0.0-0.2); Basophils % (Auto) 1 % (0-2.5); Eosinophils # (Auto) 0.2 Thou/mm3 (0.0-0.5); Eosinophils % (Auto) 2 % (0-10); Hematocrit 31.3 % (36.0-46.0); Hemoglobin 10.6 g/dL (12.0-16.0); Immature Granulocytes % (Auto) 1 % (0-0); Immature Granulocytes Auto 0.06 Thou/mm3 (0.00-0.00); Lymphocytes # (Auto) 2.1 Thou/mm3 (1.0-4.8); Lymphocytes % (Auto) 22 % (10-50); Mean Corpuscular HGB Conc 33.9 g/dl (31.0-37.0); Mean Corpuscular Hemoglobin 25.5 pg (25.0-35.0); Mean Corpuscular Volume 75 fL (80-100); Monocytes # (Auto) 0.4 Thou/mm3 (0.0-0.8); Monocytes % (Auto) 5 % (0-12); Neutrophils # (Auto) 6.5 Thou/mm3 (1.8-7.7); Neutrophils % (Auto) 70 % (37-80); Nucleated Red Blood Cell % 0 /100 WBC (0); Platelet Count 339 Thou/mm3 (140-440); RDW Standard Deviation 41.6 fL (36.4-46.3); Red Blood Count 4.16 Miln/mm3 (4.00-5.20); White Blood Count 9.2 Thou/mm3 (3.6-11.0)
[2025-01-29 14:29] LABS: Syphilis Nonreactive (Nonreactive)
[2025-01-29] MEDS: DINOPROSTONE 10 MG VAG.SUPP VAGINAL (14:37)
[2025-01-29 17:17] LABS: Amphetamine/Metham Scrn,Ur OB Negative (Negative); Benzoylecgonine Screen, Ur OB Negative (Negative); Opiate Screen,Urine OB Negative (Negative); THC Screen,Urine OB Negative (Negative)
--- NOTE | 2025-01-29 17:38 | PD.LDHP ---
Documentation for date of: 01/29/25 OB Labor/Induct. HPI History of Present Illness Chief complaint: IOL for Macrosomia : 3 Para: 2 Term pregnancies: 2 pregnancies: 0 Living children: 2 History of Abortions: Spontaneous and Elective: 0 History of sections: No CHILO: 02/05/25 Gestational Age (weeks): 39 Gestational Age (days): 0 Indication for induction: other (Macrosomia) History of present illness: 24 y/o IUP 39w0d with PNC at [facility] presents for IOL for Macrosomia. No leaking or bleeding. Reports normal movement. History of Present Dating criteria: LMP confirmed by 1st trimester US Labs Labs: Positive: Group Beta Strep, Negative: RPR, Hepatitis B, Rubella Titre, HIV, Chlamydia and Gonorrhea and Unknown: Herpes Type 1, Herpes Type 2 and Covid-19 Review of Systems Review of Systems Narrative Review of Systems: Denies any chest pain, palpitations, shortness of breath, cough, fever, headache or lower extrermity pain. Past Medical History Past Medical History CARDIAC: Positive Hypertension (Gestational Hypertension in a prior . ) Surgical History SURGICAL: Negative Section Social History SMOKING STATUS: Never smoker Meds Home Medications and Allergies Home Medications ?Medication ?Instructions ?Recorded ?Confirmed ?Type vits no.130-ferrous fum tab 11/13/24 01/21/25 History 27 mg iron-folic acid 800 mcg tablet ( Vitamin) Allergies Allergy/AdvReac Type Severity Reaction Status Date / Time No Known Allergies Allergy Verified 01/21/25 13:15 OB Exam Physical Exam Vital signs: Temp Pulse Resp BP O2 Del Method 98.1 F 99 18 139/63 H Room Air 01/29/25 13:21 01/29/25 16:27 01/29/25 13:21 01/29/25 16:27 01/29/25 13:21 Routine HEENT Exam Comments: Oropharynx and sclera clear. Routine Respiratory Exam Comments: CTA B/L Routine Cardiovascular Exam Comments: RRR Routine Abdominal Exam Comments: gravid term size consistent with EFW 8.5 lbs Detailed Labor and Delivery Exam Dilation (cm): 2.5 Effacement (%): 70 station: -3 Presentation: Vertex (per RN exam) Membranes: intact Routine Extremities Exam Comments: Nontender Routine Skin Exam Comments: No rashes or lesions. Routine Neurological Exam Comments: No focal deficit. OB Results Labs 01/29/25 13:30 Labs: Short CBC 01/29/25 Range/Units 13:30 WBC 9.2 (3.6-11.0) Thou/mm3 Hgb 10.6 L (12.0-16.0) g/dL Hct 31.3 L (36.0-46.0) % Plt Count 339 (140-440) Thou/mm3 Impressions Impression: IUP 39w0d Suspected Macrosomia Induction of Labor Anticipate
--- NOTE | 2025-01-29 17:51 | PC.NURSE ---
1748: DO Geiling called. Orders received for a regular diet, intermittent monitoring, and Amp started for gbs status after dinner.
[2025-01-29] MEDS: Ampicillin Inj 2,000 MG in SODIUM CHLORIDE 0.9% (POP) 100 ML 200 MG IV (19:28)
[2025-01-29] MEDS: RINGERS LACTATED 1000 ML 1,000 ML 100 ML IV ×2 (19:28→21:49)
[2025-01-29] MEDS: Ampicillin Inj 1,000 MG in SODIUM CHLORIDE 0.9% (Popper) 50 ML 50 MG IV (23:03)
[2025-01-30] VITALS (131 sets, daily range): BP systolic 101–142; BP diastolic 54–80; PULSE 72–127; RESP 16–18; TEMP 36.7–37.2; O2SAT 97–100
[2025-01-30] MEDS: Ampicillin Inj 1,000 MG in SODIUM CHLORIDE 0.9% (Popper) 50 ML 50 MG IV (03:16)
[2025-01-30] MEDS: RINGERS LACTATED 1000 ML 1,000 ML 100 ML IV (05:40)
[2025-01-30] MEDS: OXYTOCIN in NS 20 units 20 UNIT/1,000 ML BAG 125 UNIT IV (07:31)
[2025-01-30] MEDS: BENZO/LANO/ALOE (Dermoplast) 60 GM CAN 1 SPRAY TOP (07:38)
[2025-01-30] MEDS: MINERAL OIL 30 ML UDC TOP (07:38)
[2025-01-30] MEDS: TRANEXAMIC ACID 1,000 MG IVPB 1,000 MG/100 ML BAG 200 MG IV (07:38)
[2025-01-30] MEDS: IBUPROFEN TAB 400 MG TABLET 800 MG PO ×2 (07:39→16:35)
--- NOTE | 2025-01-30 11:46 | PD.LDDELS ---
Data ([place]) Data Hx Section: No : 3 Term: 2 : 0 Livin Abortions: Spontaneous & Theraputic: 0 Delivery Data ([place]) Labor Data Initiation of labor: Induction Induction/Augmentation Agent: Cervidil ROM date: 01/30/25 ROM time: 05:00 Amniotic membrane rupture type: Spontaneous Amniotic fluid description: Clear Delivery Data Onset of labor date: 01/29/25 Onset of labor time: 21:48 Complete dilation date: 01/30/25 Complete dilation time: 07:05 Hudgins delivery date: 01/30/25 delivery time: 07:29 Placenta delivery date: 01/30/25 Placenta delivery time: 07:31 Stage 1 total time: Labor - Stage 1 Duration 9 hours and 17 minutes Delivered by: Tana LI Delivery nurse: Nicole Schwartz RN [place] nurse: Thierry Moore RN [place]ers[place] Helper at delivery: No Support person(s) at delivery: mother of patient and FOB Delivery Method Delivery method: Normal Vaginal Delivery Presentation: Vertex Anesthesia Type Anesthesia Type: Epidural Placenta Placenta delivery description: Spontaneous Cord blood sent to lab: Yes cord blood collection: Cord Blood Type Episiotomy Episiotomy description: Right Mediolateral Umbilical Cord cord description: 3 Vessels Data ([place]) Data order: 1 's gender: Male weight (gms): 3815 g Weight (pounds): 8 lbs and 6.6 ozs Hudgins length: 21 cm 1 minute: 9 5 minutes: 9
[2025-01-30] MEDS: HYDROcodone/APAP 5/325 TABLET 1 TAB PO (20:58)
[2025-01-31] MEDS: IBUPROFEN TAB 400 MG TABLET 800 MG PO ×2 (00:33→13:41)
[2025-01-31 00:55] VITALS: BP 118/71; PULSE 88; RESP 18; TEMP 36.5; O2SAT 96
[2025-01-31 07:26] LABS: Basophils # (Auto) 0.1 Thou/mm3 (0.0-0.2); Basophils % (Auto) 1 % (0-2.5); Eosinophils # (Auto) 0.3 Thou/mm3 (0.0-0.5); Eosinophils % (Auto) 3 % (0-10); Hematocrit 31.3 % (36.0-46.0); Hemoglobin 10.2 g/dL (12.0-16.0); Immature Granulocytes % (Auto) 1 % (0-0); Immature Granulocytes Auto 0.09 Thou/mm3 (0.00-0.00); Lymphocytes # (Auto) 3.5 Thou/mm3 (1.0-4.8); Lymphocytes % (Auto) 27 % (10-50); Mean Corpuscular HGB Conc 32.6 g/dl (31.0-37.0); Mean Corpuscular Hemoglobin 25.8 pg (25.0-35.0); Mean Corpuscular Volume 79 fL (80-100); Monocytes # (Auto) 0.6 Thou/mm3 (0.0-0.8); Monocytes % (Auto) 5 % (0-12); Neutrophils # (Auto) 8.1 Thou/mm3 (1.8-7.7); Neutrophils % (Auto) 64 % (37-80); Nucleated Red Blood Cell % 0 /100 WBC (0); Platelet Count 325 Thou/mm3 (140-440); RDW Standard Deviation 44.2 fL (36.4-46.3); Red Blood Count 3.95 Miln/mm3 (4.00-5.20); White Blood Count 12.7 Thou/mm3 (3.6-11.0)
[2025-01-31 08:20] VITALS: BP 103/62; PULSE 73; RESP 16; TEMP 36.8; O2SAT 98
[2025-01-31] MEDS: HYDROcodone/APAP 5/325 TABLET 1 TAB PO (08:20)
[2025-01-31] MEDS: DOCUSATE SOD 100 MG CAPSULE PO (08:20)
--- NOTE | 2025-01-31 09:30 | PC.SS ---
BALL MILL MIXER conducted bedside contact with the patient to address nursing referral indicating patient possesses past history of THC and Cocaine.? Toxicology screening at admission negative.? BALL MILL MIXER introduced self and role.? Present with patient was En HAIR.? Patient gave consent for FOB to be present during discussion.? BALL MILL MIXER discussed basis of referral.? Patient confirmed past use of THC and Cocaine.? Patient stated ceasing use of THC and Cocaine.? , Santhosh; is the patient?s 3rd child.? Other children are ages 4 and 2 years old.? delivered naturally.? Patient plans on combo feeding the infant. ?OB services provided by [facility].? Patient describes consistency with OB appointments.? Patient denies possessing a history of mental health.? Patient is aligned with SNAP, WIC, TANF.? Patient denies history of alcohol/drug abuse.? Patient denies CWS intervention.? Patient denies episodes of domestic violence.? Patient has access to appropriate supplies and equipment; to include a car seat.? FOB will provide transportation upon discharge.? Patient describes possessing support system consisting of FOB and extended family.? BALL MILL MIXER provided the patient with community resources to include Parenting Network and Warm Line.? No further intervention required at this time, hospice social worker will be available to address any further concerns.? BALL MILL MIXER updated bedside nurse.?
--- NOTE | 2025-01-31 09:36 | ESDS_ITS ---
DS: Providers Provider Date of admission: 01/29/25 13:21 Primary care physician: Physician No Primary/Family Admitting Provider: Stefan Parham MD Attending Provider on Admission: Gee Fajardo MD Consults: 01/30/25 08:14 Referral Routine Comment: Attending Provider on DC: Flower Greenwood MD Discharging Provider: Flower Greenwood MD DS: Diagnosis Discharge Diagnosis (1) Normal in multigravida in third trimester: Status: Acute (2) Vaginal delivery: Status: Acute (3) Active labor at term: Status: Acute (4) Anemia affecting in third trimester: Status: Acute Problem List Completed Was Problem List Reviewed/Reconciled?: Yes Summary/Hosp Course Brief History: 24 y/o IUP 39w0d with PNC at [facility] presents for IOL for Macrosomia. No leaking or bleeding. Reports normal movement. Eva is s/p uncomplicated after delivering at 0729 on 01/30/25. She has had an uncomplicated course, meeting all milestones and feels ready for discharge home. She is ambulating without lightheadedness, tolerating regular diet no n/v, spontaneously voiding without issue. She has no chest pain or shortness of breath. No fevers or chills. Minimal, appropriate discomfort. Vitals normal, benign exam. Hemodynamically stable with no evidence of infection. PP Hgb 10.2 from starting 10.6. Peripartum Data Delivery Method: Normal Vaginal Delivery Episiotomy Description: Right Mediolateral Status at Discharge Functional status at discharge: independent ambulation Overall status at discharge: patient is back to baseline Time Spent with Patient Time attestation: Total time spent providing and/or coordinating discharge services: Exam Vital Signs Temp Pulse Resp BP Pulse Ox O2 Del Method 98.2 F 73 16 103/62 98 Room Air 01/31/25 08:20 01/31/25 08:20 01/31/25 08:20 01/31/25 08:20 01/31/25 08:20 01/31/25 08:20 Narrative Exam General: well developed, well nourished, no acute distress, conversant Cardiac: normal heart rate Lungs: breathing without distress Abdomen: soft, post-gravid, non-tender, no rebound or guarding, Fundus firm at u-3cm. Extremities: no pain with palpation of calves, trace edema of BLE Discharge Plan Plan Patient Disposition: HOME (Self Care) Patient condition on transfer: Stable Prescriptions/Referrals Prescriptions/Med Rec: New docusate sodium 100 mg Capsule 100 mg PO BID 10 Days Qty: 20 0RF ibuprofen 800 mg tablet 800 mg PO Q8HR PRN (Reason: Pain Scale 4-6 (Moderate) 10 Days Qty: 20 0RF ferrous sulfate 325 mg (65 mg iron) tablet 325 mg PO QDAY Qty: 30 0RF Continued Vitamin 27 mg iron- 800 mcg tablet Patient Comments: TAKE ONE TABLET BY MOUTH EVERY DAY VITAMIN Referrals: No Primary/Family,Physician [Primary Care Provider] - Patient/Caregiver Discharge Instructions Discharge Activity: activity as tolerated and other Other Discharge Activity Instructions:: vaginal rest and no heavy lifting more than 10 pounds for 6 weeks Other Discharge Diet Instructions: regular diet Education Materials: After a Vaginal Print Language: Uzbek Activity Restrictions/Additional Instructions: follow up with your crossword puzzle maker in 2 weeks, call clinic for appointment Stand Alone Forms: Faye Award Info., Patient Portal Info Letter Discharge Order Discharge Orders: Discharge (Routine); Ordered 01/31/25 Ordered By: Flower Greenwood Planned Discharge Date 01/31/25
[2025-01-31 12:45] VITALS: BP 120/75; PULSE 73; RESP 16; TEMP 36.7; O2SAT 99
--- NOTE | 2025-01-31 14:30 | PC.NURSE ---
Pt given education on MMR vaccine, pt refused after educated.
== END 2025-01-31 15:05 | disposition home or self-care (01) | DRG 560 ==
LOC: S4SX 01-30 10:35 → S4NX 01-30 13:02
PROVIDERS: Admitting Provider Specialist; Visit Provider Obstetrics & Gynecology
DX: O36.63X0 Maternal care for excessive fetal growth, third trimester, not applicable or unspecified (principal); Z37.0 Single live birth; Z3A.39 39 weeks gestation of pregnancy; O99.02 Anemia complicating childbirth
CPT/HCPCS: 36415; 59409; 80307; 85025; 86780; 86850; 86900; 86901; 94762; J0290; J2590; J2795; J3010; J3490; J7030; J7120; A9270

== ENCOUNTER 2025-02-25 10:40 | Outpatient (AMB) | payer MEDICAID, SELFPAY ==
--- NOTE | 2025-02-25 10:45 | AMBOBPPN_ITS ---
Vital Signs 02/25/25 10:54 02/25/25 11:00 Height 1.52 m Height Method Stated Weight 76.317 kg 168.4 kg Weight Measurement Method Standing Scale BMI 32.8 BP 141/97 H Blood Pressure Source Automatic Cuff Blood Pressure Location Right Upper Arm Position Sitting Respiration 18 Pulse 70 Pulse Source Monitor Temp 98.2 F Temp Source Temporal Artery Scan Pulse Oximetry (%) 99 Oxygen Delivery Method Room Air Allergies/Home Meds Allergies & Medications Allergies No Known Allergies Allergy (Verified 01/30/25 08:21) Intake Visit Data Collection New Patient or Established: Established Patient (seen at [facility] [place] Reason for Visit:: Seen by Clinical Staff ONLY (RN/MA): No 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 ), No Hx Cancer, Yes Hx Blood Disorders, Yes Hx Anemia, No Hx Gastrointestinal Disorders, No Hx Renal Disease, No Hx Diabetes Mellitus Type 1 and No Hx Diabetes Mellitus Type 2 Questionnaires Social History Living Situation History Lives With: Family Housing: Apartment Tobacco History Smoking Status: Never smoker Second Hand Smoke Exposure: No Alcohol History Alcohol Intake: Never Domestic Abuse History Do You Feel Safe at Home: Yes EPDS - PP Depression Screening [place] Pospartum Depression Screen I have been able to laugh and see the funny side of things: (0) As much as I alw ays could I have looked forward with enjoyment to things: (0) As much as I ever did I have blamed myself unnecessarily when things went wrong: (0) No, never I have been anxious or worried for no good reason: (0) No, not at all I have felt scared or panicky for no very good reason: (0) No, not at all Things have been getting on top of me: (0) No, I have been coping as well as ever I have been so unhappy that I have had difficulty sleeping: (0) No, not at all I have felt sad or miserable: (0) No, not at all I have been so unhappy that I have been crying: (0) No, never The thought of harming myself has occurred to me: (0) Never Total Score: EPDS Score: Referral is indicated for score of 9 or more, suicidal, or if provider believes patient is depressed regardless of score.: 0 EPDS completed yes Care OB Visit Log OB Flowsheet Initial Weight: Not Recorded Date -?-?-?-?-?-?-?-?-?-?-?-?- EGA Weight BP Alb Glu CTX Pres Fundal ht FHR Mov Dilation Station Effacement Hx Notes Visit Note 12/23/24 -?-?-?-?-?-?-?-?-?-?-?-?- 33w 5d 86.806 kg 102/87 absent cephalic 34 133 active This is a 24-year-old 3 para 2 at 34 weeks by a 12-week ultrasound. Patient reports good movement. Reports pressure. Reports swelling is improved since her last day of work. Patient received Tdap at her last OB visit. And patient has a follow-up maternal- medicine appointment January 09. Medical release of records today. Patient was given a disability note for today and she will return in 6 weeks sore around March 21. Advised to avoid salt. I discussed weight gain and limiting her carbohydrates. More fiber more protein. Discussed labor precautions. Discussed kick count twice daily. Return in 2 weeks for group B strep 01/07/25 -?-?-?-?-?-?-?-?-?-?-?-?- 35w 6d 60.951 kg 136/76 absent cephalic 135 active GBS today. Discussed kick count labor precautions with patient. Complains of pressure. Denies leaking or bleeding. Fetus is active and palpated while listening to heart rate. Patient reports that she has records but did not bring them. Return in 1 week OB check 01/14/25 -?-?-?-?-?-?-?-?-?-?-?-?- 36w 6d 87.543 kg 126/81 absent cephalic 37 135 active GBS-, discuss weight and diet, labor precaution, fkc bid, fetus growing 90%, schedule at 39 week, biggest baby 8lb, + 30lb weight, discuss labor precsution. called for sono from [facility] 01/21/25 -?-?-?-?-?-?-?-?-?-?-?-?- 37w 6d 86.636 kg 130/79 occasional cephalic 39 140 active 1 -4 50 urine dip, leuk:+1/Nitr- urine dip, leuk:+1/Nitr-, re viewed GBS status, GBS+ urine dip, leuk:+1/Nitr-, re viewed GBS status, GBS+, schedule IOL 01/26/25. gave instruction, fetus active. labor precaution reviewed, fkc bid. rtc 1 week CHILO Calculator Estimated Delivery Date Method Current WG Current Estimate 02/05/25 LMP (Uncertain) 43w 6d Other Estimates 02/03/25 Ultrasound #1 44w 1d Expected Delivery Route/Plan vaginal Specific Issue/Plans increased sweling both legs, increased weight gain HPI Interval History: PT DELIVERED 01/30/2025 Was or delivery considered high risk: No Delivery type: vaginal Was labor induced: no Delivery date: 01/30/25 Delivering provider: DR YBARRA Delivery complications: No Delivery complications comment: NONE Is patient sexually active: No Contraception planned: DEPO/STERILIZATION Office Procedures OB Clinic LOC & Office Proc's Nursing/Assessment Patient Status: Established Patient OB Clinic Nursing Assessment: BP Monitoring, Medication Reconciliation, Update PMH in EMR and Vital Signs OB Clinic Coordination of Care: Complex Care and Chronic Disease 1-5, Consent,records obtained, informed consent, Lab and Imaging orders and Results/Orders obtained Established Patient Charge Established Patient Point Assignment: 95 Established Patient Point Charge: EP Level 3 (80-115) Assessment & Plan Diagnosis / Problem List (1) Routine Follow-Up: (2) Encounter for care and examination after delivery: Status: Acute (3) Encounter for Depo-Provera contraception: Status: Acute Care Contraception planned: DEPO/STERILIZATION (FP) Weight: 168.4 kg Tobacco Smoking Status: Never smoker
[2025-02-25 10:54] VITALS: BP 141/97; PULSE 70; RESP 18; TEMP 36.8; O2SAT 99; BMI 32.8
== END 2025-02-25 11:18 | disposition home or self-care (01) ==
PROVIDERS: Supervising Provider Advanced Practice Midwife; Visit Provider Advanced Practice Midwife
DX: Z39.2 Encounter for routine postpartum follow-up (principal); Z30.013 Encounter for initial prescription of injectable contraceptive
CPT/HCPCS: 99213; G0463

== ENCOUNTER 2025-03-16 14:31 | Outpatient (AMB) | payer MEDICAID, SELFPAY ==
[2025-03-16 15:00] VITALS: BP 129/82; PULSE 73; RESP 18; TEMP 36.5; O2SAT 98; BMI 32.0
--- NOTE | 2025-03-16 15:00 | AMBOBPPN_ITS ---
Vital Signs 03/16/25 15:00 Height 1.55 m Height Method Measured Weight 76.884 kg Weight Measurement Method Standing Scale BMI 32.0 BP 129/82 Blood Pressure Source Automatic Cuff Blood Pressure Location Right Upper Arm Position Sitting Respiration 18 Pulse 73 Pulse Source Monitor Temp 97.7 F Temp Source Temporal Artery Scan Pulse Oximetry (%) 98 Oxygen Delivery Method Room Air Allergies/Home Meds Allergies & Medications Allergies No Known Allergies Allergy (Verified 03/16/25 15:01) Medication Reconciliation vits no.130-ferrous fum 27 mg iron-folic acid 800 mcg tablet ( Vitamin) tab 11/13/24 [History Confirmed 03/16/25] ferrous sulfate 325 mg (65 mg iron) tablet 325 mg PO QDAY #30 tabs 01/31/25 [Rx Confirmed 03/16/25] vitamin-ferrous fumarate 28 mg iron-folic acid 800 mcg tablet ( Vitamins with Minerals) 1 tab PO QDAY #60 tabs 02/25/25 [Rx Confirmed 03/16/25] Intake Visit Data Collection New Patient or Established: Established Patient (seen at [facility] within 3 years) Reason for Visit:: VISIT Consent obtained for Telemed Visit: No Seen by Clinical Staff ONLY (RN/MA): No Vice President Payer Required: No Do You Feel Safe at Home: Yes Authorities Contacted: N/A PCP or OBGYN visit in last 3 months: Yes Date of Last PCP or OBGYN visit: 02/25/25 Hx Now: No Are you currently on any form of Control: No Pain Present Currently: No Pain Scale Used: Murray-Villar/Numerical Pain scale:: 0 Smoking Status Smoking Status: Never smoker 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 ), No Hx Cancer, Yes Hx Blood Disorders, Yes Hx Anemia, No Hx Gastrointestinal Disorders, No Hx Renal Disease, No Hx Diabetes Mellitus Type 1 and No Hx Diabetes Mellitus Type 2 Questionnaires Covid-19 Vaccine Questionnaire Has patient been vacinated for Covid-19 Have you been vacinated for Covid-19: No Social History Living Situation History Lives With: Family Housing: Apartment Tobacco History Smoking Status: Never smoker Second Hand Smoke Exposure: No Alcohol History Alcohol Intake: Never Domestic Abuse History Do You Feel Safe at Home: Yes EPDS - PP Depression Screening [place] Pospartum Depression Screen I have been able to laugh and see the funny side of things: (3) Not at all I have looked forward with enjoyment to things: (3) Hardly at all I have blamed myself unnecessarily when things went wrong: (0) No, never I have been anxious or worried for no good reason: (0) No, not at all I have felt scared or panicky for no very good reason: (0) No, not at all I have been so unhappy that I have had difficulty sleeping: (0) No, not at all I have felt sad or miserable: (0) No, not at all I have been so unhappy that I have been crying: (0) No, never The thought of harming myself has occurred to me: (0) Never Care OB Visit Log OB Flowsheet Initial Weight: Not Recorded Date -?-?-?-?-?-?-?-?-?-?-?-?- EGA Weight BP Alb Glu CTX Pres Fundal ht FHR Mov Dilation Station Effacement Hx Notes Visit Note 12/23/24 -?-?-?-?-?-?-?-?-?-?-?-?- 33w 5d 86.806 kg 102/87 absent cephalic 34 133 active This is a 24-year-old 3 para 2 at 34 weeks by a 12-week ultrasound. Patient reports good movement. Reports pressure. Reports swelling is improved since her last day of work. Patient received Tdap at her last OB visit. And patient has a follow-up maternal- medicine appointment January 09. Medical release of records today. Patient was given a disability note for today and she will return in 6 weeks sore around March 21. Advised to avoid salt. I discussed weight gain and limiting her carbohydrates. More fiber more protein. Discussed labor precautions. Discussed kick count twice daily. Return in 2 weeks for group B strep 01/07/25 -?-?-?-?-?-?-?-?-?-?-?-?- 35w 6d 60.951 kg 136/76 absent cephalic 135 active GBS today. Discussed kick count labor precautions with patient. Complains of pressure. Denies leaking or bleeding. Fetus is active and palpated while listening to heart rate. Patient reports that she has records but did not bring them. Return in 1 week OB check 01/14/25 -?-?-?-?-?-?-?-?-?-?-?-?- 36w 6d 87.543 kg 126/81 absent cephalic 37 135 active GBS-, discuss weight and diet, labor precaution, fkc bid, fetus growing 90%, schedule at 39 week, biggest baby 8lb, + 30lb weight, discuss labor precsution. called for sono from [facility] 01/21/25 -?-?-?-?-?-?-?-?-?-?-?-?- 37w 6d 86.636 kg 130/79 occasional cephalic 39 140 active 1 -4 50 urine dip, leuk:+1/Nitr- urine dip, leuk:+1/Nitr-, re viewed GBS status, GBS+ urine dip, leuk:+1/Nitr-, re viewed GBS status, GBS+, schedule IOL 01/26/25. gave instruction, fetus active. labor precaution reviewed, fkc bid. rtc 1 week CHILO Calculator Estimated Delivery Date Method Current WG Current Estimate 02/05/25 LMP (Uncertain) 45w 4d Other Estimates 02/03/25 Ultrasound #1 45w 6d Expected Delivery Route/Plan vaginal Specific Issue/Plans increased sweling both legs, increased weight gain Office Procedures OB Clinic LOC & Office Proc's Nursing/Assessment Patient Status: Established Patient OB Clinic Nursing Assessment: Medication Reconciliation, Update PMH in EMR and Vital Signs OB Clinic Coordination of Care: Complex Care/Chronic Disease 5 or more, Consent,records obtained, informed consent and Education Simp Pt/Fam Established Patient Charge Established Patient Point Assignment: 85 Post Follow-up Visit Post Follow up Visit: Yes Assessment & Plan Diagnosis / Problem List (1) Routine Follow-Up: (FP) Tobacco Smoking Status: Never smoker
== END 2025-03-16 15:24 | disposition home or self-care (01) ==
LOC: HODSOBC 14:31
PROVIDERS: Supervising Provider Obstetrics & Gynecology; Visit Provider Obstetrics & Gynecology
DX: Z39.2 Encounter for routine postpartum follow-up (principal)

== ENCOUNTER 2025-03-25 11:23 | Outpatient (AMB) | payer MEDICAID, SELFPAY ==
--- NOTE | 2025-03-25 11:46 | AMBOBPPN_ITS ---
Vital Signs 03/25/25 11:47 Height 1.55 m Height Method Stated Weight 76.714 kg Weight Measurement Method Standing Scale BMI 31.9 BP 125/73 Blood Pressure Source Automatic Cuff Blood Pressure Location Right Upper Arm Position Sitting Respiration 17 Pulse 63 Pulse Source Monitor Temp 97.4 F Temp Source Temporal Artery Scan Pulse Oximetry (%) 99 Oxygen Delivery Method Room Air Allergies/Home Meds Allergies & Medications Allergies No Known Allergies Allergy (Verified 03/25/25 11:47) Medication Reconciliation vits no.130-ferrous fum 27 mg iron-folic acid 800 mcg tablet ( Vitamin) tab 11/13/24 [History Confirmed 03/25/25] ferrous sulfate 325 mg (65 mg iron) tablet 325 mg PO QDAY #30 tabs 01/31/25 [Rx Confirmed 03/25/25] vitamin-ferrous fumarate 28 mg iron-folic acid 800 mcg tablet ( Vitamins with Minerals) 1 tab PO QDAY #60 tabs 02/25/25 [Rx Confirmed 03/25/25] Intake Visit Data Collection New Patient or Established: Established Patient (seen at [facility] within 3 years) Reason for Visit:: Seen by Clinical Staff ONLY (RN/MA): No 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 ), No Hx Cancer, Yes Hx Blood Disorders, Yes Hx Anemia, No Hx [place] strointestinal Disorders, No Hx Renal Disease, No Hx Diabetes Mellitus Type 1 and No Hx Diabetes Mellitus Type 2 Questionnaires Covid-19 Vaccine Questionnaire Has patient been vacinated for Covid-19 Have you been vacinated for Covid-19: No Social History Living Situation History Lives With: Family Housing: Apartment Tobacco History Smoking Status: Never smoker Second Hand Smoke Exposure: No Alcohol History Alcohol Intake: Never Domestic Abuse History Do You Feel Safe at Home: Yes EPDS - PP Depression Screening [place] Pospartum Depression Screen I have been able to laugh and see the funny side of things: (0) As much as I always could I have looked forward with enjoyment to things: (0) As much as I ever did I have blamed myself unnecessarily when things went wrong: (0) No, never I have been anxious or worried for no good reason: (0) No, not at all I have felt scared or panicky for no very good reason: (0) No, not at all Things have been getting on top of me: (0) No, I have been coping as well as ever I have been so unhappy that I have had difficulty sleeping: (0) No, not at all I have felt sad or miserable: (0) No, not at all I have been so unhappy that I have been crying: (0) No, never EPDS completed yes Care OB Visit Log OB Flowsheet Initial Weight: Not Recorded Date -?-?-?-?-?-?-?-?-?-?-?-?- EGA Weight BP Alb Glu CTX Pres Fundal ht FHR Mov Dilation Station Effacement Hx Notes Visit Note 12/23/24 -?-?-?-?-?-?-?-?-?-?-?-?- 33w 5d 86.806 kg 102/87 absent cephalic 34 133 active This is a 24-year-old 3 para 2 at 34 weeks by a 12-week ultrasound. Patient reports good movement. Reports pressure. Reports swelling is improved since her last day of work. Patient received Tdap at her last OB visit. And patient has a follow-up maternal- medicine appointment January 09. Medical release of records today. Patient was given a disability note for today and she will return in 6 weeks sore around March 21. Advised to avoid salt. I discussed weight gain and limiting her carbohydrates. More fiber more protein. Discussed labor precautions. Discussed kick count twice daily. Return in 2 weeks for group B strep 01/07/25 -?-?-?-?-?-?-?-?-?-?-?-?- 35w 6d 60.951 kg 136/76 absent cephalic 135 active GBS today. Discussed kick count labor precautions with patient. Complains of pressure. Denies leaking or bleeding. Fetus is active and palpated while listening to heart rate. Patient reports that she has records but did not bring them. Return in 1 week OB check 01/14/25 -?-?-?-?-?-?-?-?-?-?-?-?- 36w 6d 87.543 kg 126/81 absent cephalic 37 135 active GBS-, discuss weight and diet, labor precaution, fkc bid, fetus growing 90%, schedule at 39 week, biggest baby 8lb, + 30lb weight, discuss labor precsution. called for sono from [facility] 01/21/25 -?-?-?-?-?-?-?-?-?-?-?-?- 37w 6d 86.636 kg 130/79 occasional cephalic 39 140 active 1 -4 50 urine dip, leuk:+1/Nitr- urine dip, leuk:+1/Nitr-, re viewed GBS status, GBS+ urine dip, leuk:+1/Nitr-, re viewed GBS status, GBS+, schedule IOL 01/26/25. gave instruction, fetus active. labor precaution reviewed, fkc bid. rtc 1 week CHILO Calculator Estimated Delivery Date Method Current WG Current Estimate 02/05/25 LMP (Uncertain) 46w 6d Other Estimates 02/03/25 Ultrasound #1 47w 1d Expected Delivery Route/Plan vaginal Specific Issue/Plans increased sweling both legs, increased weight gain Office Procedures OB Clinic LOC & Office Proc's Nursing/Assessment Patient Status: Established Patient OB Clinic Nursing Assessment: Medication Reconciliation, Update PMH in EMR and Vital Signs OB Clinic Coordination of Care: Complex Care and Chronic Disease 1-5, Consent,records obtained, informed consent, Education Simp Pt/Fam and Staff clarify orders Established Patient Charge Established Patient Point Assignment: 85 Post Follow-up Visit Post Follow up Visit: Yes
[2025-03-25 11:47] VITALS: BP 125/73; PULSE 63; RESP 17; TEMP 36.3; O2SAT 99; BMI 31.9
== END 2025-03-25 12:01 | disposition home or self-care (01) ==
LOC: HODSOBC 11:23
PROVIDERS: Supervising Provider Obstetrics & Gynecology; Visit Provider Obstetrics & Gynecology
DX: Z39.2 Encounter for routine postpartum follow-up (principal)

== ENCOUNTER 2025-04-09 08:51 | Emergency (ER) | payer MEDICAID, SELFPAY ==
[2025-04-09 08:58] VITALS: BP 120/60; PULSE 80; RESP 16; TEMP 37.1; O2SAT 99; BMI 30.2
--- NOTE | 2025-04-09 09:31 | EDNOTE_ITS ---
ED Headache RME/HPI General Chief Complaint: Headache Stated Complaint: STEPHENS to the back of her head, right eye drooping Time Seen by Provider: 04/09/25 09:31 Source: patient Arrival date/time: 04/09/25 08:51 Mode of arrival: ambulatory Limitations: no limitations RME / HPI RME / HPI Narrative: 24-year-old female presents to the ED with a complaint of a pain that occurred to the right posterior aspect of her head that radiates to her tongue which she is described as being numb, patient notices a facial drooping of the right face that began approximately a week ago. Also notices a difference in the facial features of her right eye versus her left eye. Her biggest concern is the numbness of her cheeks and her tongue. Complaint: other (Facial drooping) Onset (ago): week(s) (1 week) Onset description: gradual Location: right (Right face right head) Severity: moderate Severity scale (1-10): 4 Quality: other (Numbness) Related Data Home Medications ?Medication ?Instructions ?Recorded ?Confirmed vits no.130-ferrous fum tab 11/13/24 03/25/25 27 mg iron-folic acid 800 mcg tablet ( Vitamin) Previous Rx's ?Medication ?Instructions ?Recorded ferrous sulfate 325 mg (65 mg 325 mg PO QDAY #30 tabs 01/31/25 iron) tablet vitamin-ferrous fumarate 1 tab PO QDAY #60 ta bs 02/25/25 28 mg iron-folic acid 800 mcg tablet ( Vitamins with Minerals) acyclovir 800 mg tablet 800 mg PO Q5H 7 days #34 tab s 04/09/25 prednisone 20 mg tablet 20 mg PO QDAY 5 days #5 tabs 04/09/25 Allergies Allergy/AdvReac Type Severity Reaction Status Date / Time No Known Allergies Allergy Verified 04/09/25 08:55 Review of Systems Constitutional Constitutional: Reports system reviewed and no additional complaints, except as documented Eyes Eyes: Reports system reviewed and no additional complaints, except as documented, Denies dry eyes, Denies exophthalmos and Reports floaters Cardiovascular Cardiovascular: Denies chest pain with activity and Denies claudication ED Exam Narrative Physical exam: The right face when compared to the left appears to be asymmetrical. This includes the lips as well as the eyes. Patient articulates well. Patient is able to puff her cheeks, grimace, smile, patient is able to puff her cheeks, patient is able to smile, patient is able to grimace, patient is able to lag her tongue, no if there is some mild asymmetry when compared to the left side of the face. General Limitations: Present no limitations General appearance: Present alert and in no apparent distress Head Head exam: Present atraumatic Eye Eye exam: Present normal appearance and EOMI ENT ENT exam: Present normal exam, normal oropharynx and mucous membranes moist Neck Neck exam: Present normal inspection, full ROM and trachea midline Chest Chest inspection: Present normal inspection and symmetric chest wall rise Abdominal Exam Abdominal exam: Present soft and normal bowel sounds Extremities Exam Extremities exam: Present normal inspection and full ROM Back Exam Back exam: Present normal inspection and full ROM Neurological Exam Neurological exam: Present alert, oriented X3 and normal gait Psychiatric Psychiatric exam: Present normal affect and normal mood Skin Skin exam: Present warm, dry, intact and normal color Course Course Course Narrative: Patient will have a ECG and she will also have a CT of the head. 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 She will have prednisone sent to the pharmacy of her choice as well as acyclovir. She has to follow-up primary care physician within a week of today's visit. If she is worse she is to return here. Patient data External records reviewed:: Other (specify) (NA) Clinical information provided by:: none (NA) Social determinants that could affect healthcare access:: none (NA) Patient has the following chronic illnesses:: NA How is presenting disease/condition affected by chronic disease/condition?: no chronic disease (NA) Evaluation data The following diagnostics were reviewed and interpreted by me:: other (specify) (NA) Lab and/or radiology exams considered but not ordered:: NA Interpretation Summary: Kaufman's palsy Medications / Prescriptions Medications or Prescriptions considered but not ordered:: NA Medication administrations:: NA Consultations Consultation(s) initiated? (list below): No Diagnosis Differential diagnosis headache: other (NA) Most likely diagnosis given after review of the tests above:: NA Admission Indicated Admission indicated?: not indicated Explain why admission is indicated or not indicated:: NA Admission Request Was there a request for admission?: No Disposition Plan Disposition Plan: Discharge Discharge Attestation Discharge Attestation: The patient and all family members were given an opportunity to ask questions and understood the discharge instructions. Discharge instructions specifically effects, indications for sooner follow up or return to the emergency department, and the expected course of current diagnosis. Patient condition: Stable Discharge Plan Plan Patient Disposition: HOME (Self Care) Discharge Disposition comment: Discharge no apparent distress Patient condition on transfer: Stable Prescriptions/Referrals Prescriptions/Med Rec: New acyclovir 800 mg tablet 800 mg PO Q5H 7 Days Qty: 34 0RF prednisone 20 mg tablet 20 mg PO QDAY 5 Days Qty: 5 0RF No Action medroxyprogesterone [Depo-Provera] 150 mg/mL syringe 150 mg IM ONCE Qty: 1 0RF vit-iron fum-folic ac [ Vitamin with Minerals] 28 mg iron- 800 mcg tablet 1 tab PO QDAY Qty: 60 3RF Vitamin 27 mg iron- 800 mcg tablet Patient Comments: TAKE ONE TABLET BY MOUTH EVERY DAY VITAMIN ferrous sulfate 325 mg (65 mg iron) tablet 325 mg PO QDAY Qty: 30 0RF Referrals: No Primary/Family,Physician [Primary Care Provider] - In 1 week Problem List Clinical Impression: Kaufman's palsy Patient/Caregiver Discharge Instructions Education Materials: Kaufman's Palsy, ED Kaufman's Palsy Print Language: Macedonian Stand Alone Forms: Faye Award Info., Patient Portal Info Letter PA/CERTIFIED WELLNESS PROGRAM MANAGER Supervising Physician PA/CERTIFIED WELLNESS PROGRAM MANAGER Supervising Physician: MOSES
--- NOTE | 2025-04-09 09:35 | XR_ITS ---
Examination: CT brain head without contrast. 2-D sagittal coronal reconstructions Date and time of exam:April 09, 2025 1017 hours INDICATIONS: Right-sided facial droop with right-sided numbness and paresthesias today CTDI: vol (mGy):50.4 DLP: (mGycm):1006 Technique: Multiple CT axial sections of the brain have been obtained, 5 mm slice thickness. Contrast has not been administered. 2-D sagittal, coronal reconstructions have been obtained Low dose protocols were performed. One or more of the following dose reduction techniques were used; automated exposure control, adjustment of the mA and/or KV according to patient size, use of iterative reconstruction technique. Findings: No significant ventricular enlargement. Intra-axial or extra-axial hemorrhage density is not seen. No mass effect or midline shift Basal cisterns are not remarkable. Fourth ventricle is midline. Cranial vault intact. Impression: Negative for acute hemorrhage, mass effect or midline shift Brain MRI MRA without contrast follow-up would best assess for demyelinating disease, acute ischemic change
[2025-04-09 10:54] LABS: HCG Qualitative,Urine Negative
[2025-04-09 11:16] VITALS: BP 129/78; PULSE 64; RESP 18; TEMP 36.6; O2SAT 99
== END 2025-04-09 11:39 | disposition home or self-care (01) ==
PROVIDERS: Emergency Provider Physician Assistant
DX: G51.0 Bell's palsy (principal)
CPT/HCPCS: 70450; 81025; 99283